=== PATIENT | female | born 1990 | race African-American/Black ===

== ENCOUNTER 2023-11-08 15:22 | Inpatient (IN) | payer MEDICAID, OTHER ==
[~2023-11-08] VITALS: Ht 175.3 cm; Wt 112.1 kg
[2023-11-08 18:08] LABS: BASOPHILS % (AUTO) 0.3 % (0.0-2.0); EOSINOPHILS % (AUTO) 0.3 % (1.0-6.0); HEMATOCRIT 37.2 % (36-46); HEMOGLOBIN 12.3 g/dL (12.0-16.0); LYMPHOCYTES # (AUTO) 4.7 K/uL (1.0-4.8); LYMPHOCYTES % (AUTO) 53.2 % (22.0-44.0); MEAN CORPUSCULAR HEMOGLOBIN 28.5 pg (26.0-34.0); MEAN CORPUSCULAR HGB CONC 33.2 G/dL (31.0-37.0); MEAN CORPUSCULAR VOLUME 86 fL (80-100); MONOCYTES # (AUTO) 0.8 K/uL (0.1-1.0); MONOCYTES % (AUTO) 8.9 % (2.0-9.0); NEUTROPHILS # (AUTO) 3.3 K/uL (1.8-7.7); NEUTROPHILS % (AUTO) 37.3 % (40.0-70.0); PLATELET COUNT (AUTO) 182 K/uL (150-450); RED BLOOD CELL COUNT(AUTO) 4.33 MIL/uL (4.00-5.20); RED CELL DISTRIBUTION WIDTH 16.3 % (11.5-14.5); WHITE BLOOD COUNT (AUTO) 8.8 K/uL (4.5-11.0)
[2023-11-08 18:17] LABS: APPEARANCE,URINE HAZY (CLEAR); BILIRUBIN,URINE NEGATIVE (NEGATIVE); COLOR,URINE YELLOW (YELLOW); GLUCOSE, URINE (UA) NEGATIVE (NEGATIVE); KETONES,URINE NEGATIVE (NEGATIVE); LEUKOCYTE ESTERASE ,URINE LARGE (NEGATIVE); NITRATE,URINE NEGATIVE (NEGATIVE); OCCULT BLOOD,URINE SMALL (NEGATIVE); PH,URINE 6.5 (5.0-8.0); PROTEIN,URINE TRACE mg/dL (NEGATIVE); SPECIFIC GRAVITIY, URINE 1.017 (1.003-1.030); UROBILINOGEN,URINE <=1.0 mg/dL (<=1.0)
[2023-11-08 18:19] LABS: ANION GAP 7 mmol/L (8-16); CALCIUM, TOTAL 8.3 mg/dL (8.8-10.5); CARBON DIOXIDE 30 mmol/L (22-29); CHLORIDE 101 mmol/L (98-107); CREATININE 0.86 mg/dL (0.60-1.30); GLOMERULAR FILTR. RATE CALC > 60 mL/min (>60); GLUCOSE,RANDOM 117 mg/dL (70-110); POTASSIUM 3.9 mmol/L (3.5-5.1); SODIUM SERUM 138 mmol/L (136-145); UREA NITROGEN, BLOOD 8 mg/dL (7-18)
[2023-11-08 18:22] LABS: ALANINE AMINOTRANSFERASE 86 U/L (12-78); ALBUMIN 3.4 g/dL (3.4-5.0); ALKALINE PHOSPHATASE 101 U/L (46-116); ASPARTATE AMINOTRANSFERASE 63 U/L (15-37); BILIRUBIN,TOTAL 0.8 mg/dL (0.1-1.0); CREATINE KINASE, TOTAL ONLY 67 U/L (26-192); TOTAL PROTEIN, SERUM 7.6 g/dL (6.4-8.2); VALPROIC ACID 33 mcg/mL (50-100)
[2023-11-08] MEDS: ACETAMINOPHEN 500 MG TABLET PO ONE (18:22)
[2023-11-08] MEDS: ONDANSETRON HCL 4 MG/2 ML VIAL IVP ONE (18:22)
[2023-11-08] MEDS: MAG HYDROX/ALUMINUM HYD/SIMETH 30 ML SUSPENSION UDCUP PO ONE (18:22)
[2023-11-08] MEDS: FAMOTIDINE 20 MG/2 ML VIAL IVP ONE (18:22)
[2023-11-08 18:26] LABS: TROPONIN I-HIGH SENSITIVITY Less Than 4 ng/L (<51)
[2023-11-08 18:27] LABS: COVID AG,FIA SOURCE NASAL SWAB
[2023-11-08 18:39] LABS: ALCOHOL, BLOOD (SERUM) < 3 mg/dL (0-10)
[2023-11-08 18:43] LABS: ALCOHOL, URINE DRUG SCREEN NEGATIVE (NEGATIVE); AMPHET/METH SCREEN,URINE NEGATIVE (NEGATIVE); BARBITURATE SCREEN, URINE NEGATIVE (NEGATIVE); BENZODIAZEPINES SCREEN,URINE NEGATIVE (NEGATIVE); CANNABINOID SCREEN,URINE NEGATIVE (NEGATIVE); COCAINE SCREEN,URINE NEGATIVE (NEGATIVE); METHADONE SCREEN, URINE NEGATIVE (NEGATIVE); OPIATE SCREEN,URINE NEGATIVE (NEGATIVE); PHENCYCLIDINE SCREEN,URINE NEGATIVE (NEGATIVE)
[2023-11-08 18:46] LABS: PH,URINE DRUG SCREEN 6.5 (5.0-8.0)
[2023-11-08 18:52] LABS: SARS-COV2 (COVID) ANTIGEN,FIA Negative (Negative)
[2023-11-08 18:56] LABS: INFLUENZA TYPE A NEGATIVE FOR TYPE A (NEGATIVE); INFLUENZA TYPE B NEGATIVE FOR TYPE B (NEGATIVE)
[2023-11-08 19:10] LABS: BACTERIA,URINE Moderate /HPF (None Seen); SQUAMOUS EPITHELIAL CELL,UR Few /LPF (None Seen)
[2023-11-08 19:39] LABS: B-TYPE NATRIURETIC PEPTIDE < 5 pg/mL (0-100)
[2023-11-08] MEDS: CEPHALEXIN MONOHYDRATE 500 MG CAPSULE PO ONE (20:22)
[2023-11-08 21:33] LABS: TROPONIN I-HIGH SENSITIVITY Less Than 4 ng/L (<51)
[2023-11-09] MEDS ORDERED: HALOPERIDOL 5 MG TABLET PO PRN (01:00)
[2023-11-09] MEDS ORDERED: ACETAMINOPHEN 325 MG TABLET PO PRN (06:00)
[2023-11-09] MEDS ORDERED: DOCUSATE SODIUM 100 MG CAPSULE PO PRN (06:00)
[2023-11-09] MEDS ORDERED: OMEPRAZOLE 20 MG CAPSULE PO PRN (06:00)
[2023-11-09] MEDS ORDERED: ONDANSETRON HCL 4 MG TABLET PO PRN (06:00)
[2023-11-09] MEDS ORDERED: MAG HYDROX/ALUMINUM HYD/SIMETH ES 30 ML SUSPENSION UDCUP PO PRN (06:00)
[2023-11-09] MEDS ORDERED: CloNIDine HCL 0.1 MG TABLET PO PRN (06:00)
[2023-11-09] MEDS ORDERED: BENZOCAINE/MENTHOL LOZENGE PO PRN (06:00)
[2023-11-09] MEDS ORDERED: MAGNESIUM HYDROXIDE SUSPENSION 30 ML UDCUP PO PRN (06:00)
[2023-11-09] MEDS ORDERED: BACITRACIN 28 GM OINTMENT TP PRN (06:00)
[2023-11-09] MEDS ORDERED: LOPERAMIDE HCL 2 MG CAPSULE PO PRN (06:00)
[2023-11-09] MEDS ORDERED: ALBUTEROL SULFATE HFA 90 MCG/PUFF 8 GM INHALER IH PRN (06:00)
[2023-11-09] MEDS ORDERED: PETROLATUM,WHITE 28 GM JELLY TP PRN (06:00)
[2023-11-09 07:02] VITALS: BP 135/97; PULSE 100; RESP 18; TEMP 97.7; O2SAT 95
[2023-11-09] MEDS: CEPHALEXIN MONOHYDRATE 500 MG CAPSULE PO SCH (08:10)
[2023-11-09] MEDS: LORazepam 2 MG TABLET PO PRN (08:10)
[2023-11-09] MEDS ORDERED: PNEUMOCOCCAL VACCINE POLYVALENT 0.5 ML SYRINGE [PPSV23] IM. ONE (09:15)
[2023-11-09] MEDS ORDERED: DIVA-111 PO (10:13)
[2023-11-09] MEDS ORDERED: ATOR10TA69 PO (10:13)
[2023-11-09] MEDS ORDERED: TOPI-97 PO (10:13)
[2023-11-09] MEDS ORDERED: PARO-37 PO (10:13)
[2023-11-09 18:56] VITALS: BP 109/63; PULSE 85; RESP 17; TEMP 97.5; O2SAT 97
[2023-11-09] MEDS: PARoxetine HCL 20 MG TABLET PO SCH (20:29)
[2023-11-09] MEDS: ARIPiprazole 5 MG TABLET PO SCH (20:29)
[2023-11-09] MEDS: TOPIRAMATE 25 MG TABLET PO SCH (20:30)
[2023-11-09] MEDS: ZOLPIDEM TARTRATE 10 MG TABLET PO PRN (20:57)
[2023-11-09 21:29] VITALS: BP 121/70; PULSE 91; RESP 16; TEMP 97.3; O2SAT 99
[2023-11-10 07:10] VITALS: BP 112/63; PULSE 91; RESP 18; O2SAT 91
[2023-11-10] MEDS: IBUPROFEN 600 MG TABLET PO PRN (07:14)
[2023-11-10 09:54] VITALS: BP 115/65; PULSE 89; RESP 17; TEMP 98.1; O2SAT 95
[2023-11-10 21:25] VITALS: BP 145/75; PULSE 90; RESP 18; TEMP 98.6; O2SAT 96
[2023-11-11 08:18] VITALS: BP 137/87; PULSE 99; RESP 18; TEMP 98.2; O2SAT 97
[2023-11-11] MEDS ORDERED: SPIR50TA27 PO (12:42)
[2023-11-11] MEDS ORDERED: LIDO1ADH63 TD (12:42)
[2023-11-11] MEDS ORDERED: CHOL200059 PO (12:42)
[2023-11-11] MEDS ORDERED: CETI10TA58 PO (12:42)
[2023-11-11] MEDS ORDERED: TRAZ-252 PO (12:42)
[2023-11-11] MEDS: LURASIDONE HCL 20 MG TABLET PO SCH (16:20)
[2023-11-11] MEDS ORDERED: LURA20TA PO ×2 (19:51→19:53)
[2023-11-11] MEDS ORDERED: CEPH-558 PO (19:54)
== END 2023-11-11 20:31 | disposition home or self-care (01) | DRG 753 ==
LOC: EMS 15:23 → B3A 11-09 04:20
PROVIDERS: ADMIT Psychiatry & Neurology Psychiatry; ATTEND Psychiatry & Neurology Psychiatry
PROC: GZHZZZZ Group Psychotherapy (ICD-10-PCS; principal; 2023-11-10)
PROC: GZ51ZZZ Individual Psychotherapy, Behavioral (ICD-10-PCS; 2023-11-10)
DX: F31.4 Bipolar disorder, current episode depressed, severe, without psychotic features (principal); R45.851 Suicidal ideations; E66.9 Obesity, unspecified; F41.9 Anxiety disorder, unspecified; F43.10 Post-traumatic stress disorder, unspecified; G47.00 Insomnia, unspecified; Z20.822 Contact with and (suspected) exposure to COVID-19; J45.909 Unspecified asthma, uncomplicated; K59.00 Constipation, unspecified; N39.0 Urinary tract infection, site not specified; Z79.899 Other long term (current) drug therapy
CPT/HCPCS: 71045; 80053; 80164; 80307; 81001; 82550; 83880; 84484; 84702; 84703; 85025; 87086; 87186; 87804; 93005; 99285; G0480; J2405; J3490; Q0162; Q9967; 36415-L1; 36415-TC